=== PATIENT | female | born 1965 | race Caucasian/White ===

== ENCOUNTER 2022-03-21 20:53 | Emergency (ER) | payer MEDICAID, OTHER ==
[2022-03-21] MEDS ORDERED: Lidocaine 1% 5 ML VIAL INJECT ONE (21:37)
[2022-03-21] MEDS ORDERED: Bacitracin Oint 1 GM U/D Packet TOP ONE (21:38)
== END 2022-03-21 22:10 | disposition home or self-care (01) ==
LOC: JP.ED 20:53
DX: S61.240A Puncture wound with foreign body of right index finger without damage to nail, initial encounter (principal); Z88.2 Allergy status to sulfonamides; W26.8XXA Contact with other sharp object(s), not elsewhere classified, initial encounter
CPT/HCPCS: 99283